=== PATIENT | female | born 1995 | race Caucasian/White ===

== ENCOUNTER 2018-09-11 09:28 | Emergency (ER) | payer MEDICAID ==
[~2018-09-11] VITALS: Ht 162.6 cm; Wt 91.0 kg
[~2018-09-11 09:28] MED LIST: BIRTH CONTROL PILLS PO; ESCI10TA PO; IBUP-1985 PO; NABU500T2 PO; PANT20TA3 PO
[2018-09-11 09:34] VITALS: BP 122/73
[2018-09-11 10:10] LABS: URINE HCG NEGATIVE (NEG)
[2018-09-11 10:19] LABS: CLARITY,URINE CLEAR (Clear); COLOR,URINE STRAW (Yellow); GLUCOSE, URINE NEGATIVE (Neg); KETONES,URINE NEGATIVE (Neg); LEUKOCYTE ESTERASE ,URINE NEGATIVE (Neg); NITRITES, URINE NEGATIVE (Neg); OCCULT BLOOD,URINE NEGATIVE (Neg); PROTEIN,URINE NEGATIVE (Neg); UROBILINOGEN,URINE 0.2 E.U/dL (0.2-1.0)
[2018-09-11 10:19] LABS: BASOPHILS # (AUTO) 0.1 X10'3 (0-0.2); BASOPHILS % (AUTO) 0.7 % (0-1); EOSINOPHILS # (AUTO) 0.8 X10'3 (0-0.9); HEMATOCRIT 41.9 % (35.0-45.0); HEMOGLOBIN 14.3 g/dl (12.0-16.0); LYMPHOCYTES # (AUTO) 2.6 X10'3 (1.1-4.8); LYMPHOCYTES % (AUTO) 21.2 % (21-51); MEAN CORPUSCULAR HEMOGLOBIN 30.9 PG (27.0-31.0); MEAN CORPUSCULAR HGB CONC 34.3 g/dL (33.0-36.5); MEAN CORPUSCULAR VOLUME 90.2 FL (78-98); MEAN PLATELET VOLUME 9.3 FL (7.4-10.4); MONOCYTES # (AUTO) 0.9 X10'3 (0-0.9); MONOCYTES % (AUTO) 7.5 % (2-12); NEUTROPHILS # (AUTO) 7.7 X10'3 (1.8-7.7); NEUTROPHILS % (AUTO) 63.6 % (42-75); PLATELET COUNT 377 X10'3 (140-440); RED BLOOD COUNT 4.64 X10'6 (4.20-5.60); RED CELL DISTRIBUTION WIDTH 12.9 % (11.5-14.5); WHITE BLOOD COUNT 12.1 X10'3 (4.5-11.0)
[2018-09-11 10:20] LABS: UA COLLECTION TYPE CLN CATCH MIDSTREAM
[2018-09-11 10:21] LABS: ALANINE AMINOTRANSFERASE 16 U/L (12-78); ALBUMIN 4.1 G/DL (3.4-5.0); ALBUMIN/GLOBULIN RATIO 1.1 (1.1-1.5); ALKALINE PHOSPHATASE 86 IU/L (46-116); ANION GAP 9 (8-16); ASPARTATE AMINO TRANSFERASE 11 U/L (10-37); BILIRUBIN,TOTAL 0.3 MG/DL (0.1-1.0); BLOOD UREA NITROGEN 8 MG/DL (7-18); BUN/CREATININE RATIO 12.7 (6.6-38.0); CALCIUM 9.4 MG/DL (8.5-10.1); CHLORIDE 104 MMOL/L (99-107); CREATININE 0.63 MG/DL (0.40-0.90); GLUCOSE 98 MG/DL (70-104); POTASSIUM 3.8 MMOL/L (3.5-5.1); SODIUM 139 MMOL/L (135-145); TOTAL CARBON DIOXIDE 25.9 MMOL/L (24-32); eGFR > 90 ML/MIN
== END 2018-09-11 11:41 | disposition home or self-care (01) ==
LOC: ER 09:29
DX: K43.2 Incisional hernia without obstruction or gangrene (principal); Z87.442 Personal history of urinary calculi; Z90.49 Acquired absence of other specified parts of digestive tract; Z98.890 Other specified postprocedural states; Z88.1 Allergy status to other antibiotic agents; Z79.899 Other long term (current) drug therapy
CPT/HCPCS: 36415; 74176; 80053; 81003; 81025; 85025; 85610; 99284

== ENCOUNTER 2023-01-05 15:23 | Emergency (ER) | payer MEDICAID ==
[~2023-01-05] VITALS: Ht 162.6 cm; Wt 100.0 kg
[~2023-01-05 15:23] MED LIST changes: +NABU-139 PO; -NABU500T2 PO; +PANT20TA18 PO; -PANT20TA3 PO
[2023-01-05 15:42] VITALS: BP 143/80; PULSE 99; TEMP 99; O2SAT 95
[2023-01-05] MEDS ORDERED: HYDROcodone/acetaminophen 5mg/325mg tablet PO ONE (16:00)
[2023-01-05] MEDS ORDERED: dicloxacillin 500 MG capsule PO SCH (16:00)
[2023-01-05] MEDS ORDERED: HYDR-3965 PO (16:03)
[2023-01-05] MEDS ORDERED: ONDA4TAB12 PO (16:03)
[2023-01-05] MEDS ORDERED: DYN500C PO (16:03)
[2023-01-05 16:12] VITALS: RESP 19
== END 2023-01-05 16:23 | disposition home or self-care (01) ==
LOC: ER 15:25
DX: N61.0 Mastitis without abscess (principal); Z87.440 Personal history of urinary (tract) infections; Z87.442 Personal history of urinary calculi; Z98.890 Other specified postprocedural states; Z90.49 Acquired absence of other specified parts of digestive tract; Z88.1 Allergy status to other antibiotic agents; Z79.2 Long term (current) use of antibiotics; Z79.899 Other long term (current) drug therapy
CPT/HCPCS: 99283